=== PATIENT | female | born 1945 | race Caucasian/White ===

== ENCOUNTER 2023-10-22 16:53 | Emergency (ER) | payer OTHER ==
[2023-10-22 17:54] LABS: Absolute Lymphocytes (CBC) 0.8 K/uL (0.7-4.9); Absolute Monocytes 0.2 K/uL (0.1-1.3); Absolute Neutrophil 4.7 K/uL (1.8-8.0); Basophils % 0.4 % (0-1.3); Eosinophils % 0.7 % (0-4.4); Hematocrit 37.4 % (36.0-45.0); Hemoglobin 13.1 g/dL (12.0-15.0); Lymphocytes % 14.2 % (15.3-44.8); MCH 32.6 pg (27.0-35.0); MCHC 35.1 g/dL (32.0-36.0); MPV 7.3 fL (7.6-11.3); Monocytes % 3.8 % (3.3-12.3); Neutrophils % 80.9 % (41.7-73.7); Nucleated Red Blood Cells % 0.1 % (0-0); Platelets 290 thou/uL (152-406); RBC Red Blood Cell Count 4.02 M/uL (3.86-4.86); Red Cell Distribution Width 12.9 % (12.1-15.2)
[2023-10-22 18:13] LABS: Albumin 3.1 g/dL (3.4-5.0); Albumin/Globulin Ratio 0.8 (1.1-1.8); Anion Gap 5.1 mEq/L (5.0-15.0); Bilirubin Total 0.3 mg/dL (0.2-1.0); Magnesium 2.4 mg/dL (1.6-2.4); Potassium 4.1 mEq/L (3.5-5.1); Protein, Total 7.1 g/dL (6.4-8.2); Troponin High Sensitivity 3.9 pg/mL (<58.9)
--- NOTE | 2023-10-22 18:24 | RAD REPORT ---
EXAM DESCRIPTION: RADChest Single View10/22/2023 5:45 pm CLINICAL HISTORY: DYSPNEA COMPARISON: Chest Pa And Lat (2 Views) dated 11/21/2021; Chest Pa And Lat (2 Views) dated 03/22/2021; Chest Pa And Lat (2 Views) dated 08/26/2019; CHEST PA AND LAT 2 VIEW dated 07/08/2013; Thorax Wo Con haley ed 06/13/2023 TECHNIQUE: Portable AP view of the chest. FINDINGS: Lungs show mild patchy bilateral mid to lower lung airspace opacities with background hype rlucency and chronic interstitial changes. No pneumothorax or effusion. The cardiomediastinal contou rs are unremarkable. IMPRESSION: Mild patchy bilateral airspace opacities as above, may reflect COPD exacerbation.
[2023-10-22] MEDS ORDERED: NA CHLORIDE 0.9% 500 ML ONE (20:00)
--- NOTE | 2023-10-22 20:12 | RAD REPORT ---
EXAM DESCRIPTION: CT - Chest For Pe Angio - 10/22/2023 7:08 pm CLINICAL HISTORY: DYSPNEA COMPARISON: Thorax Wo Con dated 06/13/2023; Thorax Wo Con dated 11/28/2021; Thorax Wo Con dated 022; THORAX WO CONTRAST dated 07/26/2013; Chest Single View dated 10/22/2023 TECHNIQUE: Thin axial CT images of the chest were obtained following administration of 100 mL Isovue 370 IV contrast. Multiplanar reconstructions, and maximum intensity projection reconstructions were generated and reviewed. Exam utilizes a protocol for optimal evaluation of pulmonary arterial tree. All CT scans are performed using dose optimization technique as appropriate and may include automated exposure control or mA/KV adjustment according to patient size. FINDINGS: Pulmonary arteries are normal. No emboli or other suspicious finding. No acute or signific ant aorta findings. Stable extent of hyperlucency and mild bronchiectatic changes most pronounced in the dependent lung b ases. Predominantly peripheral and basal peribronchovascular and centrilobular nodular opacities, pro gressive since the prior CT. No suspicious lung mass. No pleural thickening or pleural effusion. No p neumothorax. No abnormal mediastinal or hilar masses or lymphadenopathy seen. No chest wall mass or abnormal axill iary lymphadenopathy. IMPRESSION: No evidence of acute central pulmonary emboli. Progressive peribronchovascular and centrilobular nodular opacities predominantly in the lung bases, on a background of hyperlucency and stable bronchiectatic changes, findings which suggest multifocal pneumonitis superimposed on chronic obstructive lung disease.
--- NOTE | 2023-10-22 20:34 | EDPHYS ---
Physician Documentation [facility] Name: Yohana Valladares Age: 78 yrs Sex: Female : 1945 Arrival Date: 10/22/2023 Time: 16:53 Bed 8 Private MD: Ivis Ramirez C ED Physician Germán Ventura HPI: 10/21 19:37 This 78 yrs old Female presents to ER via Wheelchair with complaints of Low O2. kb 19:39 Pt is an 78 year old female who presents for shortness of breath that is worse on kb exertion with decreased energy and appetite for about 2 months. States she saw her bioinformatics research technician in [place] one month ago and her breathing tests were normal, but symptoms have gotten worse. Denies fever. 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 - Infectious Disease History:: Denies. - Social history:: Smoking status: Patient denies any tobacco usage or history of. ROS: 19:36 Constitutional: As per HPI kb Exam: 19:36 Constitutional: This is a well developed, well nourished patient who is awake, alert, kb and in no acute distress. Head/Face: Normocephalic, atraumatic. ENT: Moist Mucous membranes Cardiovascular: Regular rate Respiratory: Respirations even and unlabored. No increased work of breathing. Talking in full sentences Abdomen/GI: Soft, non-tender. No distention Skin: Warm, dry with normal turgor. Normal color. MS/ Extremity: Pulses equal, no cyanosis. Neurovascular intact. Full, normal range of motion. Neuro: Awake and alert, GCS 15, oriented to person, place, time, and situation. Moves all extremities. Normal gait. 19:36 ECG was reviewed by the Attending Physician. kb Vital Signs: 17:01 BP 148 / 83; Pulse 95; Resp 16; Temp 98; Pulse Ox 98% ; Weight 44.45 kg; Height 5 ft. 4 ll1 in. ; Pain 0/10; 18:37 BP 133 / 71; Pulse 70; Resp 18; Pulse Ox 99% on R/A; rs5 19:58 BP 126 / 104; Pulse 95; Pulse Ox 97% on R/A; Pain 0/10; tm6 20:06 Pulse Ox 96% on R/A; tm6 17:01 Body Mass Index 16.82 (44.45 kg, 162.56 cm) ll1 17:01 Pain Scale: Adult ll1 19:58 Pain Scale: Adult tm6 MDM: 17:00 Patient medically screened. kb 19:37 Data reviewed: vital signs, nurses notes. kb 19:37 Differential diagnosis: Bronchitis Chronic Obstructive Pulmonary Disease pneumonia, kb pulmonary edema, Pulmonary Embolism MAC. 20:34 Antibiotic administration: Not indicated. Counseling: I had a detailed discussion with kb the patient and/or guardian regarding the historical points, exam findings, and any diagnostic results supporting the discharge/admit diagnosis, lab results, radiology results, the need for outpatient follow up, a family practitioner, a bioinformatics research technician, to return to the emergency department if symptoms worsen or persist or if there are any questions or concerns that arise at home. ED course: Pt maintained oxygen saturation of 96% after ambulating down trauma rees to the restroom and back. No obvious distress. . 20:35 ED course: At bedside to reassess patient. Patient remains awake, alert and at baseline kb mentation. Patient appears stable. Patient exhibits no visible signs of distress. Patient respirations even and unlabored. I discussed patient's diagnosis, differential diagnosis, expected course of illness, at home recommendations and strict return precautions. I advised patient to follow-up with PCP in 2 to 3 days. I explained all diagnostic results with the patient and answered all questions that patient had regarding the most likely diagnosis. I emphasized the need for close outpatient follow-up and care from primary care provider/specialist and went through careful and detailed return precautions with patient. Patient expressed full understanding of such and agrees with plan for discharge today. Feel patient is stable and appropriate for discharge and ongoing management of condition at home at this time.. 10/21 17:12 Order name: Blood Culture Adult (2) 10/21 17:12 Order name: CBC with Diff; Complete Time: 18:03 kb 10/21 17:12 Order name: CPK; Complete Time: 18:19 kb 10/21 17:12 Order name: D-Dimer; Complete Time: 18:03 kb 10/21 17:12 Order name: Lipase; Complete Time: 18:19 kb 10/21 17:12 Order name: Magnesium; Complete Time: 18:19 kb 10/21 17:12 Order name: NT PRO-BNP; Complete Time: 18:19 kb 10/21 17:12 Order name: Troponin HS; Complete Time: 18:19 kb 10/21 17:12 Order name: CMP; Complete Time: 18:19 kb 10/21 17:12 Order name: XRAY CXR (1 view); Complete Time: 18:31 kb 10/21 18:10 Order name: CT Chest For PE Angio; Complete Time: 20:13 kb 10/21 17:12 Order name: Cardiac monitoring; Complete Time: 17:44 kb 10/21 17:12 Order name: EKG - Nurse/Tech; Complete Time: 17:45 kb 10/21 17:12 Order name: IV Saline Lock; Complete Time: 17:45 kb 10/21 17:12 Order name: Labs collected and sent; Complete Time: 17:45 kb 10/21 17:12 Order name: O2 Per Protocol; Complete Time: 17:12 kb 10/21 17:12 Order name: O2 Sat Monitoring; Complete Time: 17:12 kb EC:36 Rate is 83 beats/min. Rhythm is regular. Right axis deviation noted. [place] interval is kb normal at 124 msec. QRS interval is normal at 70 msec. QT interval is normal at 423 msec. Administered Medications: 20:09 Drug: NS 0.9% IV 500 ml IV at bolus once Route: IV; Rate: bolus; Site: right tm6 antecubital; Disposition Summary: 10/22/23 20:33 Discharge Ordered Notes: Location: Home kb Condition: Stable kb Diagnosis - Dyspnea kb Followup: kb - With: Emergency Department - When: As needed - Reason: Worsening of condition Followup: kb - With: Private Physician - When: 2 - 3 days - Reason: Recheck today's complaints, Continuance of care, Re-evaluation by your physician Discharge Instructions: - Discharge Summary Sheet kb - Shortness of Breath, Adult, [id number] kb Forms: - Medication Reconciliation Form kb - Antibiotic Education kb - Prescription Opioid Use kb - Patient Portal Instructions kb - Leadership Thank You Letter kb Signatures: Dispatcher [employer] Victoria Zambrano, [employer]-C MARY-Gem Martínez, RN RN ll1 Culp, Aaron, RN RN rs5 Estrellita Salas, RN RN tm6 Corrections: (The following items were deleted from the chart) 17:12 17:12 BLOOD CULTURE*+BA.LAB.BRZ ordered. EDMS EDMS 17:12 17:12 CBC+H.LAB.BRZ ordered. EDMS EDMS 17:12 17:12 CREATINE PHOSPHOKINASE+C.LAB.BRZ ordered. EDMS EDMS 17:12 17:12 D-DIMER+COAG.LAB.BRZ ordered. EDMS EDMS 17:12 17:12 LIPASE+C.LAB.BRZ ordered. EDMS EDMS 17:12 17:12 MAGNESIUM+C.LAB.BRZ ordered. EDMS EDMS 17:12 17:12 PROBNP+C.LAB.BRZ ordered. EDMS EDMS 17:12 17:12 Troponin High Sensitivity+C.LAB.BRZ ordered. EDMS EDMS 17:12 17:12 COMPREHENSIVE METABOLIC PANEL+C.LAB.BRZ ordered. EDMS EDMS 17:13 17:12 Chest Single View+RAD.RAD.BRZ ordered. EDMS EDMS
--- NOTE | 2023-10-22 20:34 | ER ---
Nurse's Notes [facility] Name: Yohana Valladares Age: 78 yrs Sex: Female : 1945 Arrival Date: 10/22/2023 Time: 16:53 Bed 8 Private MD: Ivis Ramirez C Diagnosis: Dyspnea Presentation: 10/21 17:01 Chief complaint: Patient states: SOB for 6-8 weeks, no energy, no appetite. Low O2 with ll1 exertion. Coronavirus screen: Client denies travel out of the [place] in the last 14 days. At this time, the client does not indicate any symptoms associated with coronavirus-19. Ebola Screen: Patient denies travel to an Ebola-affected area in the 21 days before illness onset. Initial Sepsis Screen: Does the patient meet any 2 criteria? No. Patient's initial sepsis screen is negative. Does the patient have a suspected source of infection? No. Patient's initial sepsis screen is negative. Risk Assessment: Do you want to hurt yourself or someone else? Patient reports no desire to harm self or others. Onset of symptoms was August 23, 2023. 17:01 Method Of Arrival: Wheelchair ll1 17:01 Acuity: BRIA 2 ll1 Triage Assessment: 17:02 General: Appears uncomfortable, ill, Behavior is calm, cooperative, appropriate for ll1 age. Pain: Denies pain. Neuro: Reports weakness. Cardiovascular: Reports fatigue, shortness of breath. GI: Reports no appetite. 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 - Infectious Disease History:: Denies. - Social history:: Smoking status: Patient denies any tobacco usage or history of. Screenin:01 [facility] ED Fall Risk Assessment (Adult) History of falling in the last 3 months, rs5 including since admission No falls in past 3 months (0 pts) Confusion or Disorientation No (0 pts) Intoxicated or Sedated No (0 pts) Impaired Gait No (0 pts) Mobility Assist Device Used No (0 pt) Altered Elimination No (0 pt) Score/Fall Risk Level 0 - 2 = Low Risk Oriented to surroundings, Maintained a safe environment. Abuse screen: Denies threats or abuse. Nutritional screening: No deficits noted. Tuberculosis screening: No symptoms or risk factors identified. Assessment: 17:01 General: Appears in no apparent distress. comfortable, Behavior is calm, cooperative. rs5 Pain: Denies pain. Neuro: Level of Consciousness is awake, alert, obeys commands, Oriented to person, place, time, situation. Cardiovascular: Patient's skin is warm and dry. Rhythm is regular. Respiratory: Airway is patent Respiratory effort is even, unlabored, Respiratory pattern is regular, symmetrical, GI: Abdomen is round non-distended, Abd is soft and non tender. : No signs and/or symptoms were reported regarding the genitourinary system. EENT: No signs and/or symptoms were reported regarding the EENT system. Derm: Skin is intact, Skin is pink, warm \T\ dry. Musculoskeletal: Circulation, motion, and sensation intact. Range of motion: intact in all extremities. 19:58 Reassessment: Patient and/or family updated on plan of care and expected duration. Pain tm6 level reassessed. Patient is alert, oriented x 3, equal unlabored respirations, skin warm/dry/pink. 20:05 Reassessment: After ambulating to the restroom and returning to the bed, patient has O2 tm6 saturation of 96% on room air. Vital Signs: 17:01 BP 148 / 83; Pulse 95; Resp 16; Temp 98; Pulse Ox 98% ; Weight 44.45 kg; Height 5 ft. 4 ll1 in. ; Pain 0/10; 18:37 BP 133 / 71; Pulse 70; Resp 18; Pulse Ox 99% on R/A; rs5 19:58 BP 126 / 104; Pulse 95; Pulse Ox 97% on R/A; Pain 0/10; tm6 20:06 Pulse Ox 96% on R/A; tm6 17:01 Body Mass Index 16.82 (44.45 kg, 162.56 cm) ll1 17:01 Pain Scale: Adult ll1 19:58 Pain Scale: Adult tm6 ED Course: 16:56 Patient arrived in ED. mr 16:56 Ivis Ramirez MD is Private Physician. mr 16:58 Victoria Mccall FNP-C is [facility]. kb 16:58 Germán Ventura MD is Attending Physician. kb 16:59 Arm band placed on Patient placed in an exam room, on a stretcher. ll1 17:01 Patient has correct armband on for positive identification. Placed in gown. Bed in low rs5 position. Call light in reach. Side rails up X2. 17:02 Triage completed. ll1 17:04 Clif Webb, RN is Primary Nurse. as6 17:47 XRAY CXR (1 view) In Process Unspecified. EDMS 18:37 No provider procedures requiring assistance completed. rs5 19:10 CT Chest For PE Angio In Process Unspecified. EDMS 19:59 Provided Education on: wait times. Client placed on continuous cardiac and pulse tm6 oximetry monitoring. NIBP monitoring applied. library monitor on. Pulse ox on. NIBP on. Door closed. Noise minimized. Warm blanket given. PO fluids given. snacks provided. 20:03 Blood Culture Adult (2) Sent. tm6 Administered Medications: 20:09 Drug: NS 0.9% IV 500 ml IV at bolus once Route: IV; Rate: bolus; Site: right tm6 antecubital; Medication: 18:37 VIS not applicable for this client. rs5 Outcome: 20:33 Discharge ordered by . kb 21:00 Patient left the ED. tm6 Signatures: Dispatcher [employer] EDMS Victoria Mccall, [employer]ANT-C [employer] CON[employer]ANT-CkBrenda Cardenas, Reg Reg mr TrevinoGem, RN RN ll1 Clif Webb, RN RN as6 Aaron Culp, RN RN rs5 Estrellita Salas RN RN tm6
[2023-10-22 21:05] VITALS: TEMP 98
[2023-10-22 21:35] VITALS: BP 126/104; O2SAT 96
== END 2023-10-22 21:00 | disposition home or self-care (01) ==
LOC: ER 16:53
DX: R06.00 Dyspnea, unspecified (principal); Z88.5 Allergy status to narcotic agent; Z88.8 Allergy status to other drugs, medicaments and biological substances
CPT/HCPCS: 87040 ×2; 85025; 36415; 83735; 82550; 85379; 84484; 83690; 80053; 83880; 71275; 71045; Q9967; J7040; 93005

== ENCOUNTER 2024-09-15 12:32 | Emergency (ER) | payer OTHER ==
[2024-09-15 13:10] LABS: Absolute Eosinophils 0.3 K/uL (0-0.5); Absolute Lymphocytes (CBC) 0.8 K/uL (0.7-4.9); Absolute Monocytes 0.8 K/uL (0.1-1.3); Absolute Neutrophil 7.7 K/uL (1.8-8.0); Basophils % 0.3 % (0-1.3); Eosinophils % 2.7 % (0-4.4); Hematocrit 39.2 % (36.0-45.0); Hemoglobin 13.7 g/dL (12.0-15.0); Lymphocytes % 8.1 % (15.3-44.8); MCH 33.1 pg (27.0-35.0); MCHC 35.1 g/dL (32.0-36.0); MCV 94.4 fL (80-100); MPV 8.3 fL (7.6-11.3); Monocytes % 8.7 % (3.3-12.3); Neutrophils % 80.2 % (41.7-73.7); Platelets 296 thou/uL (152-406); RBC Red Blood Cell Count 4.15 M/uL (3.86-4.86); Red Cell Distribution Width 15.2 % (12.1-15.2)
[2024-09-15 13:23] LABS: PT Prothrombin Time 10.8 SECONDS (10-13.0); Protime INR 0.94
[2024-09-15 13:31] LABS: ALT/SGPT 25 U/L (13-56); AST/SGOT 21 U/L (15-37); Albumin 2.7 g/dL (3.4-5.0); Albumin/Globulin Ratio 0.6 (1.1-1.8); Alkaline Phosphatase 75 U/L (45-117); Anion Gap 8.2 mEq/L (5.0-15.0); BUN Blood Urea Nitrogen 22 mg/dL (7-18); Bicarbonate 28 mEq/L (21-32); Bilirubin Direct < 0.2 mg/dL (0-0.2); Bilirubin Indirect, Calculated 0.3 mg/dL (0.2-0.8); Bilirubin Total 0.5 mg/dL (0.2-1.0); Globulin 4.5 g/dL (2.3-3.5); Glomerular Filtration Rate 77 ml/min (=/>90); Glucose Level 166 mg/dL (74-106); Magnesium 2.2 mg/dL (1.6-2.4); NT PRO-BNP 138 pg/mL (<450); Potassium 4.2 mEq/L (3.5-5.1); Protein, Total 7.2 g/dL (6.4-8.2); Sodium Level 132 mEq/L (136-145); Troponin High Sensitivity < 3.0 pg/mL (<58.9)
--- NOTE | 2024-09-15 13:41 | RAD REPORT ---
EXAM: Chest Single View HISTORY: 79 years Female CHEST PAIN COMPARISON: 10/22/2023 FINDINGS: LUNGS/PLEURA: Chronic interstitial lung changes with increasing ill-defined opacities scattered throu ghout both lungs. CARDIAC/MEDIASTINUM: The cardiac silhouette is within normal limits. UPPER ABDOMEN: No significant abnormality. BONES: No acute abnormality. LINES/TUBES/OTHER: N/A IMPRESSION: Chronic lung changes with increased ill-defined bilateral opacities that may reflect a superimposed a cute pneumonia.
--- NOTE | 2024-09-15 15:54 | EDPHYS ---
Physician Documentation [facility] Name: Yohana Valladares Age: 79 yrs Sex: Female : 1945 Arrival Date: 09/15/2024 Time: 12:32 Bed 25 Private MD: ED Physician Melida Jonas HPI: 09/15 13:54 This 79 yrs old Female presents to ER via Wheelchair with complaints of Chest Pain. 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 Patient is having no current chest pain. At no point did she have headache, neck pain, shortness of breath, back pain, abdominal pain, nausea, vomit, diarrhea, syncope, near-syncope, or any other signs or symptoms on ROS at this time.. 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 - Infectious Disease History:: Denies. - Social history:: Smoking status: Patient denies any tobacco usage or history of. ROS: 13:58 Constitutional: Negative for fever, chills, and weight loss, Eyes: Negative for injury, sp3 pain, redness, and discharge, ENT: Negative for injury, pain, and discharge, Neck: Negative for injury, pain, and swelling, Respiratory: Negative for shortness of breath, cough, wheezing, and pleuritic chest pain, Abdomen/GI: Negative for abdominal pain, nausea, vomiting, diarrhea, and constipation, Back: Negative for injury and pain, MS/Extremity: Negative for injury and deformity, Skin: Negative for injury, rash, and discoloration, Neuro: Negative for headache, weakness, numbness, tingling, and seizure, Psych: Negative for depression, anxiety, suicide ideation, homicidal ideation, and hallucinations, Allergy/Immunology: Negative for hives, rash, and allergies, Endocrine: Negative for neck swelling, polydipsia, polyuria, polyphagia, and marked weight changes, 13:58 All other systems are negative, Exam: 13:59 Constitutional: This is a well developed, well nourished patient who is awake, alert, sp3 and in no acute distress. Head/Face: Normocephalic, atraumatic. Eyes: Pupils equal round and reactive to light, extra-ocular motions intact. Lids and lashes normal. Conjunctiva and sclera are non-icteric and not injected. Cornea within normal limits. Periorbital areas with no swelling, redness, or edema. Neck: Trachea midline, no thyromegaly or masses palpated, and no cervical lymphadenopathy. Supple, full range of motion without nuchal rigidity, or vertebral point tenderness. No Meningismus. Chest/axilla: Normal chest wall appearance and motion. Nontender with no deformity. No lesions are appreciated. Cardiovascular: Regular rate and rhythm with a normal S1 and S2. No gallops, murmurs, or rubs. Normal PMI, no JVD. No pulse deficits. Respiratory: Lungs have equal breath sounds bilaterally, clear to auscultation and percussion. No rales, rhonchi or wheezes noted. No increased work of breathing, no retractions or nasal flaring. Abdomen/GI: Soft, non-tender, with normal bowel sounds. No distension or tympany. No guarding or rebound. No evidence of tenderness throughout. Back: No spinal tenderness. No costovertebral tenderness. Full range of motion. Skin: Warm, dry with normal turgor. Normal color with no rashes, no lesions, and no evidence of cellulitis. MS/ Extremity: Pulses equal, no cyanosis. Neurovascular intact. Full, normal range of motion. Neuro: Awake and alert, GCS 15, oriented to person, place, time, and situation. Cranial nerves II-XII grossly intact. Motor strength 5/5 in all extremities. Sensory grossly intact. Cerebellar exam normal. Normal gait. Psych: Awake, alert, with orientation to person, place and time. Behavior, mood, and affect are within normal limits. 13:59 ECG was reviewed by the Attending Physician. EKG demonstrates sinus tachycardia at 105 bpm with normal intervals, normal QRS, normal axis, nonspecific diffuse ST/T changes without evidence of acute ischemia. Vital Signs: 13:02 BP 114 / 70; Pulse 97; Resp 24; Temp 98.1; Pulse Ox 97% ; bp 15:45 BP 110 / 76; Pulse 91; Resp 24; Pulse Ox 96% ; bp MDM: 12:39 Medical Screening Exam initiated 3 13:59 Data reviewed: vital signs, nurses notes, lab test result(s), EKG, radiologic studies. 3 ED course: 79-year-old female with now resolved chest pain episode. Differential diagnosis includes most skeletal pain, acute coronary syndrome though unlikely, other pulmonary pathology, among others. I am not highly suspicious of aortic aneurysm and/or dissection, sepsis, shock or other critical pathology at this time. Workup will include EKG, chest x-ray and general labs with troponins x 2 2 hours apart. If workup negative we will safely discharge patient home at this time. Heart rate currently in the 90s and patient is having no pain whatsoever.. 15:52 ED course: Second troponin negative. Chest x-ray shows scar tissue which is known from sp3 the MAC. No further indication for any antibiotics and clinically not infected. Will safely discharge patient home to PCP follow-up and cardiology follow-up.. 09/15 12:39 Order name: Basic Metabolic Panel; Complete Time: 13:53 [facility] 09/15 12:39 Order name: CBC with Diff; Complete Time: 13:53 [facility] 09/15 12:39 Order name: LFT's; Complete Time: 13:53 [facility] 09/15 12:39 Order name: Magnesium; Complete Time: 13:53 [facility] 09/15 12:39 Order name: NT PRO-BNP; Complete Time: 13:53 [facility] 09/15 12:39 Order name: PT-INR; Complete Time: 13:53 [facility] 09/15 12:39 Order name: Troponin HS; Complete Time: 13:53 [facility] 09/15 13:54 Order name: Troponin High Sensitivity: Draw 2 hours after first; Complete Time: 15:48 [facility] 09/15 12:39 Order name: XRAY Chest (1 view); Complete Time: 13:53 [facility] 09/15 12:39 Order name: Cardiac monitoring; Complete Time: 12:46 [facility] 09/15 12:39 Order name: EKG - Nurse/Tech; Complete Time: 12:46 [facility] 09/15 12:39 Order name: IV Saline Lock; Complete Time: 13:15 [facility] 09/15 12:39 Order name: Labs collected and sent; Complete Time: 13:15 [facility] 09/15 12:39 Order name: O2 Per Protocol; Complete Time: 12:46 sp3 09/15 12:39 Order name: O2 Sat Monitoring; Complete Time: 12:46 sp3 Administered Medications: No medications were administered Disposition Summary: 09/15/24 15:53 Discharge Ordered Notes: Location: Home sp3 Condition: Stable sp3 Diagnosis - Chest pain, unspecified sp3 Followup: sp3 - With: Private Physician - When: Upon discharge from the Emergency Department - Reason: Recheck today's complaints, Continuance of care Discharge Instructions: - Discharge Summary Sheet sp3 - Nonspecific Chest Pain, Adult sp3 Forms: - Medication Reconciliation Form sp3 - Antibiotic Education sp3 - Prescription Opioid Use sp3 - Patient Portal Instructions sp3 - Leadership Thank You Letter sp3 Signatures: Dispatcher [employer] EDKofi Mcmullen, RN RN Melida Pedraza MD MD sp3 Corrections: (The following items were deleted from the chart) 12:39 12:39 BASIC METABOLIC PANEL+C.LAB.BRZ ordered. EDMS EDMS 12:39 12:39 CBC+H.LAB.BRZ ordered. EDMS EDMS 12:39 12:39 HEPATIC FUNCTION+C.LAB.BRZ ordered. EDMS EDMS 12:39 12:39 MAGNESIUM+C.LAB.BRZ ordered. EDMS EDMS 12:39 12:39 PROBNP+C.LAB.BRZ ordered. EDMS EDMS 12:39 12:39 PROTIME (+INR)+COAG.LAB.BRZ ordered. EDMS EDMS 12:39 12:39 Troponin High Sensitivity+C.LAB.BRZ ordered. EDMS EDMS 12:40 12:39 Chest Single View+RAD.RAD.BRZ ordered. EDMS EDMS
--- NOTE | 2024-09-15 15:54 | ER ---
Nurse's Notes [facility] Name: Yohana Valladares Age: 79 yrs Sex: Female : 1945 Arrival Date: 09/15/2024 Time: 12:32 Bed 25 Private MD: Diagnosis: Chest pain, unspecified Presentation: 09/15 12:48 Coronavirus screen: At this time, the client does not indicate any symptoms associated bp with coronavirus-19. Ebola Screen: No symptoms or risks identified at this time. Initial Sepsis Screen: Does the patient meet any 2 criteria? No. Patient's initial sepsis screen is negative. Does the patient have a suspected source of infection? No. Patient's initial sepsis screen is negative. Risk Assessment: Do you want to hurt yourself or someone else? Patient reports no desire to harm self or others. Onset of symptoms is unknown. 12:48 Method Of Arrival: Wheelchair bp 12:48 Acuity: BRIA 3 bp 13:02 Chief complaint: Patient states: SUBSTERNAL CP SINCE THIS MORNING, NOW RESOLVED. bp Triage Assessment: 12:47 General: Appears in no apparent distress. Behavior is cooperative, appropriate for age, bp anxious. Pain: Complains of pain in chest. EENT: No deficits noted. Neuro: No deficits noted. Cardiovascular: Reports chest pain. Respiratory: No deficits noted. GI: No signs and/or symptoms were reported involving the gastrointestinal system. : No signs and/or symptoms were reported regarding the genitourinary system. Derm: No deficits noted. Musculoskeletal: No deficits noted. 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 - Infectious Disease History:: Denies. - Social history:: Smoking status: Patient denies any tobacco usage or history of. Screenin:03 [facility] ED Fall Risk Assessment (Adult) History of falling in the last 3 months, bp including since admission No falls in past 3 months (0 pts) Confusion or Disorientation No (0 pts) Intoxicated or Sedated No (0 pts) Impaired Gait Mobility Assist Device Used No (0 pt) Altered Elimination. [facility] ED Fall Risk Assessment (Adult) Score/Fall Risk Level 0 - 2 = Low Risk Oriented to surroundings. Abuse screen: Denies threats or abuse. Denies injuries from another. Nutritional screening: No deficits noted. Tuberculosis screening: No symptoms or risk factors identified. Assessment: 13:03 General: Appears in no apparent distress. slender, malnourished, Behavior is calm, bp cooperative, appropriate for age. Pain: Complains of pain in chest Pain does not radiate. Pain began 4 hours ago. Neuro: No deficits noted. Cardiovascular: No deficits noted. Respiratory: No deficits noted. GI: No signs and/or symptoms were reported involving the gastrointestinal system. : No deficits noted. EENT: No deficits noted. Derm: No deficits noted. 15:45 Reassessment: No changes from previously documented assessment. Patient is alert, bp oriented x 3, equal unlabored respirations, skin warm/dry/pink. Vital Signs: 13:02 BP 114 / 70; Pulse 97; Resp 24; Temp 98.1; Pulse Ox 97% ; bp 15:45 BP 110 / 76; Pulse 91; Resp 24; Pulse Ox 96% ; bp ED Course: 12:38 Patient arrived in ED. al6 12:38 Melida Jonas MD is Attending Physician. sp3 12:46 Kofi Glez, YOVANY is Primary Nurse. bp 12:47 Arm band placed on. bp 12:49 Triage completed. bp 13:03 Patient has correct armband on for positive identification. Client placed on continuous bp cardiac and pulse oximetry monitoring. NIBP monitoring applied. 13:03 Initial lab(s) drawn, by wv, sent to lab. Inserted saline lock: 22 gauge in right bp forearm, using aseptic technique. Blood collected. Flushed with 10 mL NS. 13:27 XRAY Chest (1 view) In Process Unspecified. EDMS 16:05 No provider procedures requiring assistance completed. IV discontinued, intact, bp bleeding controlled, No redness/swelling at site. Pressure dressing applied. Patient maintains SpO2 saturation greater than 95% on room air. Administered Medications: No medications were administered Medication: 13:03 VIS not applicable for this client. bp Outcome: 15:53 Discharge ordered by . sp3 16:05 Discharged to home via wheelchair, with family, bp 16:05 Condition: stable 16:05 Discharge instructions given to patient, family, Instructed on discharge instructions, follow up and referral plans. Demonstrated understanding of instructions, follow-up care, 16:05 Patient left the ED. bp Signatures: Dispatcher [employer] Kofi Mondragon RN RN bp Melida Jonas MD MD sp3 Jessica Brothers6 Corrections: (The following items were deleted from the chart) 16:04 16:04 BP 112 / 90; Pulse 89bpm; Resp 15bpm; Pulse Ox 95%; bp bp
[2024-09-15 22:26] VITALS: TEMP 98.1
[2024-09-15 22:28] VITALS: BP 110/76; O2SAT 96
--- NOTE | 2024-09-20 12:18 | EKG ---
Test Date: 2024-09-15 Test Time: 12:49:35 Office Support Specialist: BLANCA MEASUREMENT RESULTS: Intervals: Rate: 107 UT: 140 QRSD: 66 QT: 320 QTc: 427 [place]: P: 78 UT: 140 QRS: 93 T: 93 INTERPRETIVE STATEMENTS: Sinus tachycardia Septal infarct, age undetermined Lateral infarct, age undetermined Abnormal ECG Compared to ECG 10/22/2023 17:20:32 Sinus rhythm no longer present Right-axis deviation no longer present Myocardial infarct finding still present Electronically Signed On 09-20-24 12:07:33 CDT by Kiko Jaquez
== END 2024-09-15 16:05 | disposition home or self-care (01) ==
LOC: ER 12:32
DX: R07.9 Chest pain, unspecified (principal)
CPT/HCPCS: 36415; 71045; 80048; 80076; 83735; 83880; 84484; 85025; 85610; 93005; 99284

== ENCOUNTER 2025-04-18 13:22 | Inpatient (IN) | payer OTHER ==
[2025-04-18] MEDS ORDERED: HYDROMORPHONE HCL 2 MG/ML inj IV PRN (15:40)
[2025-04-18] MEDS ORDERED: LORazepam 2 MG/ML VIAL IV PRN (15:41)
[2025-04-18] MEDS ORDERED: ONDANSETRON 4 MG (ODT) TAB PO PRN (15:42)
[2025-04-18] MEDS ORDERED: BISACODYL 10 MG RECTAL SUPP PR PRN (15:44)
[2025-04-18] MEDS: SCOPOLAMINE HYDROBROMIDE PATCH TD SCH (15:52)
[2025-04-18] MEDS: HYDROMORPHONE HCL 2 MG/ML inj IV SCH (15:52)
[2025-04-18 16:16] VITALS: BMI 13.2
[2025-04-18 16:26] VITALS: BP 55/29
--- NOTE | 2025-04-18 20:48 | P.SSS ---
Patient History Date of Service: 04/18/25 Reason for admission: RESPIRATORY FAILURE History of Present Illness: DONAVAN AVALOS IS A KNOWN PULMONARY FIBROSIS PATIENT OF DR. HAMPTON. SHE COMES TO ER WITH SEVERE RESPIRATORY FAILURE. CT SCAN SHOWS PROGRESSIVE CHANGES. I SAW HER THIS PM. SHE WAS ALREADY IN [place]ON[place] BREATHING WITH OXYGEN ON. I ADVISED FAMILY TO REMOVE OXYGEN SHE WAS MINUTES TO HOURS FROM PASSING AWAY. AT ABOUT 8:40 SHE EXPECTED. Allergies codeine Allergy (Verified 04/18/25 08:24) Hives/Rash diphenhydramine [From Benadryl] Allergy (Verified 04/18/25 08:24) Shortness of breath - Social History Smoking Status: Unknown if ever smoked Alcohol use: No CD- Drugs: No Caffeine use: No Place of Residence: Home Review of Systems 10-point ROS is otherwise unremarkable General: Weakness, As per HPI Physical Examination - Vital Signs Blood Pressure: 55/29 Pulse: 53 Respirations: 10 Pulse Ox (%): 72 - Physical Exam General: Cachectic, Severe distress HEENT: Atraumatic, PERRLA, Mucous membr. moist/pink, EOMI, Sclerae nonicteric Neck: Supple, 2+ carotid pulse no bruit, No LAD, Without JVD or thyroid abnormality Respiratory: Diminished (AGONAL.) Cardiovascular: Irregular heart rate/rhythm Gastrointestinal: Normal bowel sounds, No tenderness Musculoskeletal: No tenderness Integumentary: No rashes Neurological: Other (COMATOSE.) Lymphatics: No axilla or inguinal lymphadenopathy - Diagnosis (Problem(s)) (1) Acute and chronic respiratory failure Current Visit: Yes Status: Chronic Plan: SHE AND WAS KEPT COMFORTABLE WITH HOSPICE PROTOCOL OF SHELIA FLETCHER AT BEDSIDE. THEY ARE VERY CONTENT. Qualifiers: Respiratory failure complication: hypoxia and hypercapnia Qualified Code(s): J96.21 - Acute and chronic respiratory failure with hypoxia; J96.22 - Acute and chronic respiratory failure with hypercapnia (2) Pulmonary fibrosis Current Visit: Yes Status: Acute - Disposition Disposition: ROUTINE DISCHARGE
== END 2025-04-18 22:00 | disposition expired | DRG 951 ==
LOC: 2ND 13:22
PROVIDERS: ADMIT Internal Medicine; ATTEND Internal Medicine
DX: Z51.5 Encounter for palliative care (principal)
CPT/HCPCS: J1171